=== PATIENT | female | born 1950 | race Caucasian/White ===

== ENCOUNTER → 2023-09-23 07:35 | Outpatient (REF) | payer OTHER, SELFPAY | LOC: RAD 07:35 | PROVIDERS: ATTENDING PHYSICIAN Orthopaedic Surgery; FAMILY PHYSICIAN Internal Medicine | DX: M25.511 Pain in right shoulder (principal) | CPT/HCPCS: 76882 ==

== ENCOUNTER 2023-10-08 05:47 | Day surgery (SDC) | payer OTHER, SELFPAY ==
[2023-10-02 13:11] VITALS: BMI 26.9
[2023-10-02 13:50] LABS: % Basophils 0.7 % (0-2); % Eosinophils 1.3 % (0-6); % Immature Granulocytes 0.3 % (0-0.5); % Lymphocytes 42.3 % (20.5-51.1); % Monocytes 6.8 % (1.7-9.3); % Neutrophils 48.6 % (42.2-75.2); Absolute Basophils 0.1 10^3/uL (0-0.2); Absolute Eosinophils 0.1 10^3/uL (0-0.7); Absolute Lymphocytes 3.2 10^3/uL (1.2-3.4); Absolute Monocytes 0.5 10^3/uL (0.1-0.6); Absolute Neutrophils 3.7 10^3/uL (1.4-6.5); Hematocrit 41.3 % (37.0-47.0); Hemoglobin 13.8 g/dL (12.0-16.0); Mean Corp Hgb Conc. 33.4 g/dL (33.0-37.0); Mean Corpuscular Hgb 31.2 pg (27.0-31.0); Mean Corpuscular Volume 93.4 fL (81.0-99.0); Mean Platelet Volume 9.6 fL (7.4-10.4); Nucleated Red Blood Cells % 0 %; Platelet Count 308 10^3/uL (130-400); Red Blood Cell Count 4.42 10^6/uL (4.20-5.40); Red Cell Dist. Width 12.7 % (11.5-14.5); White Blood Cell Count 7.6 10^3/uL (4.8-10.8)
[2023-10-02 14:03] LABS: Blood Urea Nitrogen 16 mg/dl (7-17); Calcium 9.6 mg/dl (8.4-10.2); Carbon Dioxide 28 mmol/L (22-30); Chloride 103 mmol/L (98-107); Estimated Creatinine Clearance 58 ml/min; Glucose 101 mg/dl (70-99); Potassium 4.8 mmol/L (3.5-5.1); Sodium 135 mmol/L (135-145); eGFR > 60.00
[2023-10-08] VITALS (10 sets, daily range): BP systolic 122–148; BP diastolic 60–102; BMI 26.9
[2023-10-08] MEDS: NORMOSOL-R 1000 IV (06:27)
[2023-10-08] MEDS: MOBIC 15 MG PO (06:27)
[2023-10-08] MEDS: TYLENOL 1000 MG PO (06:27)
== END 2023-10-08 10:34 | disposition home or self-care (01) ==
LOC: SDS 05:47
PROVIDERS: ATTENDING PHYSICIAN Orthopaedic Surgery; FAMILY PHYSICIAN Internal Medicine; OTHER PHYSICIAN Internal Medicine Cardiovascular Disease
DX: S46.211A Strain of muscle, fascia and tendon of other parts of biceps, right arm, initial encounter (principal); M75.41 Impingement syndrome of right shoulder; W19.XXXA Unspecified fall, initial encounter
CPT/HCPCS: 29827; 29819; 29823; 36415; 80048; 85025; 93005; C1713

== ENCOUNTER 2023-10-13 00:05 | Emergency (ER) | payer OTHER, SELFPAY ==
[2023-10-13 00:10] VITALS: BP 116/72
--- NOTE | 2023-10-13 01:28 | ED.GENMED ---
History of Present Illness
<BLANCHE Montero - Last Filed: 10/13/23 01:44>
General
Chief Complaint: Bowel Problem
Source: patient
Exam Limitations: none
Time Seen by Provider: 10/13/23 01:12
Nursing documentation reviewed up to this point in time: agreed with
Travel History
Have you had any contact with someone who has COVID-19?: No
Do you have any symptoms of coronavirus? Fever > 100 degrees, chills, cough, shortness of breath, sore throat, loss of taste or smell, muscle aches, or headache?: No
History of Present Illness
History of Present Illness:
patient is a 73 y/o female presenting due to lack of bowel movement in 5 days. patient had a rotator cuff surgery on . Patient admits to small bowel movement stating that was the size of a quarter. Patient admits to associated lower
abdominal pain that is constant but will get severe in waves. Patient admits the pain has gotten worse today. Patient admits that she has been nausea with dry heaving since 7pm today with no episodes of vomiting. Patient denies D/V, fever, chills,
CP, SOB, .patient has been taking stool softener and Dulcolax at home for many days with no success. patient has been eating regularly with last meal this morning.
Past History
<BLANCHE Montero - Last Filed: 10/13/23 01:44>
Past History
ED Past Medical History: Cancer, Other (pacemaker) and Other (lung ca)
ED Past Surgical History: Cardiac (pacemaker) and Other (Pneumonectomy)
Social History
Tobacco: Former smoker
Alcohol: None
Drug: None
Personal:
Living: with family
Employment: Other
Family History
Family History: Hypertension
Review of Systems
<BLANCHE Montero - Last Filed: 10/13/23 01:44>
Review of Systems
All Other Systems: Not applicable
Constitutional: Reports no symptoms
EENT: Reports no symptoms
Respiratory: Reports no symptoms
Cardiac: Reports no symptoms
ABD/GI: Reports abdominal pain, nausea and constipated
: Reports no symptoms
Musculoskeletal: Reports no symptoms
Skin: Reports no symptoms
Neurological: Reports no symptoms
Endocrine: Reports no symptoms
Hematologic/Lymphatic: Reports no symptoms
Psychiatric: Reports no symptoms
Phy Exam
<BLANCHE Montero - Last Filed: 10/13/23 01:44>
General Physical Exam
General Presentation: well appearing and no apparent distress
General Skin: warm and dry
General Habitus: normal
General Mental: alert
General Hydration: appears well hydrated
ENT Exam
ENT Exam: EOMI, pharynx normal, neck supple and normocephalic
Eye Exam
Eye Exam: PERRL, cornea clear and conjunctiva normal
Cardiovascular Exam
Cardiovascular Exam: regular rate/rhythm, no edema, no murmur and normal peripheral pulses
Pulmonary Exam
Pulmonary Exam: lungs clear, no respiratory distress, no rales, no crackles, no rhonchi, no stridor, no wheezing and no cough
Gastrointestinal Exam
Gastrointestinal Exam: soft and abnormal bowel sounds (no bowel sounds)
Palpation: generalized: Mild tenderness
Auscultation of Abdomen: absent
Rectal Exam: no stool
Neurological Exam
Neurological Exam: alert, oriented x3, no motor deficits and speech normal
Musculoskeletal Exam
Musculoskeletal Exam: full ROM and no edema
Skin Exam
Skin Exam: normal color, warm/dry, no rash and no petechia
Psychiatric Exam
Psychiatric Exam: normal mood/affect
Course
<BLANCHE Montero - Last Filed: 10/13/23 01:44>
Orders/Labs/Results
Orders:
Orders
10/13/23 01:43
Enema- Treatment ONCE
Type: Milk of Molasses
Obstruct Series W/PA Chest [CR Obstruct Series W/pa Chest] Urgent
Comment:
Reason For Exam: lower abd pain, constipated
10/13/23 02:30
CT Abd/pelvis W Iv Cont Urgent
Comment:
Reason For Exam: general abd pain
Complete Blood Count/With Diff Urgent
Comprehensive Metabolic Panel Urgent
10/13/23 02:58
Lactulose [Duphalac/Chronulac] 20 grams PO ONCE ONE
Vital Signs
Initial and Last Documented VS:
Initial Vital Signs
Temp Pulse Resp BP Pulse Ox
97.8 F 88 24 116/72 96
10/13/23 00:10 10/13/23 00:10 10/13/23 00:10 10/13/23 00:10 10/13/23 00:10
Last Documented Vital Signs
Temp Pulse Resp BP Pulse Ox
97.8 F 88 24 116/72 96
10/13/23 00:10 10/13/23 00:10 10/13/23 00:10 10/13/23 00:10 10/13/23 00:10
<Danilo Lares, DO - Last Filed: 10/13/23 03:02>
Orders/Labs/Results
Orders:
Orders
10/13/23 01:43
Enema- Treatment ONCE
Type: Milk of Molasses
Obstruct Series W/PA Chest [CR Obstruct Series W/pa Chest] Urgent
Comment:
Reason For Exam: lower abd pain, constipated
10/13/23 02:30
CT Abd/pelvis W Iv Cont Urgent
Comment:
Reason For Exam: general abd pain
Complete Blood Count/With Diff Urgent
Comprehensive Metabolic Panel Urgent
10/13/23 02:58
Lactulose [Duphalac/Chronulac] 20 grams PO ONCE ONE
Vital Signs
Initial and Last Documented VS:
Initial Vital Signs
Temp Pulse Resp BP Pulse Ox
97.8 F 88 24 116/72 96
10/13/23 00:10 10/13/23 00:10 10/13/23 00:10 10/13/23 00:10 10/13/23 00:10
Last Documented Vital Signs
Temp Pulse Resp BP Pulse Ox
97.8 F 88 24 116/72 96
10/13/23 00:10 10/13/23 00:10 10/13/23 00:10 10/13/23 00:10 10/13/23 00:10
<BLANCHE Montero - Last Filed: 10/13/23 01:44>
MDM/Problems Addressed
Differential Diagnosis Includes:
ileus
SOB
constipation
MDM/Problems Addressed:
abdominal pain
<BLANCHE Montero - Last Filed: 10/13/23 01:44>
*Critical Care Note
Total Time (30-74mins, 75-104mins- exclusive of procedures): Not Applicable
<Danilo Lares, DO - Last Filed: 10/13/23 03:02>
Update Note
Update Note:
Obstruction study does show air-fluid levels. Will obtain CT to rule out obstruction
I reevaluated the patient after the enema. Patient states she had a significant bowel movement and stating she is feeling much better. I discussed my concern for the x-ray we discussed getting the CT scan. Patient acknowledges my concern but
states she feels comfortable going home. She is questioning whether or not there is something stronger than magnesium citrate. Will give dose of lactulose. Patient understands the risks of going home and states she will come back if things get
worse
ED Attending Note
<BLANCHE Montero - Last Filed: 03/26/24 01:44>
-
Portions of this chart may have been created with voice recognition software.� Occasional wrong word or��sound alike� substitutions may have occurred due to the inherent limitations of voice recognition software.
<Danilo Lares, DO - Last Filed: 10/13/23 03:02>
ED Attending Note
Patient seen and examined by attending physician: Yes
I performed the substantive portion of visit, reviewed & personally made and approve the management plan that is documented in note by myself or KENJI.: Yes
ED Attending Note:
I have seen and evaluated the patient with a [id number] encounter. I have spoken to the advance practicer provider and involved in the medical history, the physical exam, medical decision making.
Evaluation and management service: agree unless noted differently below.
Results interpretation: agree unless noted differently below.
Focused HPI: 73-year-old female presenting with abdominal pain and constipation. She had recent right shoulder surgery and has been taking narcotics. Patient thought she was being proactive. She was taking stool softeners and Dulcolax while she
was taking the narcotics but she became constipated. She complains of dry heaving but denies vomiting
Physical exam: She appears comfortable. No significant abdominal tenderness noted. Rectal exam performed with director of marketing operations YOJANA Truong. No stool palpated in the rectal vault
Medical Decision Making: Given that no stool is palpated, will obtain obstruction series and enema and reassess
Discharge Plan
Departure
Patient Disposition: Home (Routine Discharge)
Date of Disposition: 10/13/23
Time of Disposition: 03:01
Patient with high blood pressure during this ER visit?: No
Discharge Problem:
Acute constipation
Instructions: Constipation, Adult (DC)
Prescriptions:
No Action
eszopiclone [Lunesta] 3 MG tablet
3 mg PO HS PRN (Reason: insomnia)
Patient Comments:
04/01/2022: last filled 09/30/21, 90 tabs for 90 days from [facility]#2236
albuterol sulfate 1 PUFF HFA aerosol inhaler
2 puff inhalation R Q6 PRN (Reason: sob/wheezing)
Patient Comments:
patient reports using this medication one year ago
carvedilol 6.25 mg Tablet
6.25 mg PO BID
valsartan 80 mg Tablet
80 mg PO HS
gabapentin 300 mg Capsule
300 mg PO BID PRN (Reason: pain)
budesonide-formoterol [Symbicort] 160-4.5 mcg/actuation Hfa Aerosol Inhaler
2 puff INHALATION R BID PRN (Reason: allergies)
docusate sodium [Stool Softener] 100 mg Capsule
100 mg PO HS
multivitamin Capsule
1 cap PO DAILY
Probiotic
220 mg PO DAILY
magnesium
72 mg PO DAILY
duloxetine 30 mg Capsule,Delayed Release(Dr/Ec)
30 mg PO HS
Referrals:
Sherrell Christie MD [Family Provider] -
Activity Restrictions/Additional Instructions:
Please return for any worsening symptoms.
You may return at any time if you have further concerns.
As we discussed, I cannot 100% rule out an obstruction in your intestines. I am glad you are feeling better but you must return if symptoms persist.
Please follow up with your doctor at the first available appointment, preferably this week.
Thank you for choosing [facility] [place].
Interventions
Interventions:
*Risk Screen - Suicide Last Done: 10/13/23 00:10
*General Assessment Last Done: 10/13/23 02:49
*Neglect/Abuse Screening Last Done: 10/13/23 00:10
ED- Fall Risk Assessment Last Done: 10/13/23 01:40
*ED COVID-19 Vaccine History Last Done: 10/13/23 02:49
SR-Duttru-Dfijpermai Assessment Last Done: 10/13/23 01:40
[2023-10-13] MEDS: DUPHALAC/CHRONULAC 20 GRAMS PO (03:14)
== END 2023-10-13 03:15 | disposition home or self-care (01) ==
LOC: EMR 00:05
PROVIDERS: EMERGENCY PHYSICIAN Student in an Organized Health Care Education/Training Program; FAMILY PHYSICIAN Internal Medicine
DX: K59.00 Constipation, unspecified (principal)
CPT/HCPCS: 99283; 74022

== ENCOUNTER 2023-11-17 08:56 | Outpatient (RCR) | payer OTHER, SELFPAY | END 2023-11-17 23:59 | disposition home or self-care (01) | LOC: RPT 08:56 | PROVIDERS: ATTENDING PHYSICIAN Orthopaedic Surgery; FAMILY PHYSICIAN Internal Medicine | DX: Z47.89 Encounter for other orthopedic aftercare (principal); Z98.890 Other specified postprocedural states; M25.511 Pain in right shoulder; Z73.6 Limitation of activities due to disability | CPT/HCPCS: 97010; 97110; 97140; 97161 ==

== ENCOUNTER 2023-12-17 06:28 | Outpatient (RCR) | payer OTHER, SELFPAY | END 2023-12-17 23:59 | disposition home or self-care (01) | LOC: RPT 06:28 | PROVIDERS: ATTENDING PHYSICIAN Orthopaedic Surgery; FAMILY PHYSICIAN Internal Medicine | DX: M25.511 Pain in right shoulder (principal); Z98.890 Other specified postprocedural states; Z73.6 Limitation of activities due to disability | CPT/HCPCS: 97010; 97110; 97112; 97140 ==

== ENCOUNTER 2024-01-15 13:58 | Outpatient (RCR) | payer OTHER, SELFPAY | END 2024-01-15 23:59 | disposition home or self-care (01) | LOC: RPT 13:58 | PROVIDERS: ATTENDING PHYSICIAN Orthopaedic Surgery; FAMILY PHYSICIAN Internal Medicine | DX: Z47.89 Encounter for other orthopedic aftercare (principal); Z73.6 Limitation of activities due to disability; M62.81 Muscle weakness (generalized); M25.511 Pain in right shoulder | CPT/HCPCS: 97010; 97110; 97112; 97140 ==

== ENCOUNTER 2024-02-16 11:57 | Outpatient (RCR) | payer OTHER, SELFPAY | END 2024-02-16 23:59 | disposition home or self-care (01) | LOC: RPT 11:57 | PROVIDERS: ATTENDING PHYSICIAN Orthopaedic Surgery; FAMILY PHYSICIAN Internal Medicine | DX: Z47.89 Encounter for other orthopedic aftercare (principal); Z73.6 Limitation of activities due to disability; M62.81 Muscle weakness (generalized); M25.511 Pain in right shoulder | CPT/HCPCS: 97010; 97110; 97112; 97140 ==

== ENCOUNTER 2024-02-18 10:57 | Outpatient (RCR) | payer OTHER, SELFPAY | END 2024-02-18 11:58 | disposition home or self-care (01) | LOC: RPT 10:57 | PROVIDERS: ATTENDING PHYSICIAN Orthopaedic Surgery; FAMILY PHYSICIAN Internal Medicine | DX: Z47.89 Encounter for other orthopedic aftercare (principal); Z73.6 Limitation of activities due to disability; M62.81 Muscle weakness (generalized); M25.511 Pain in right shoulder; Z98.890 Other specified postprocedural states | CPT/HCPCS: 97110; 97140 ==

== ENCOUNTER → 2024-04-06 10:28 | Outpatient (REF) | payer OTHER, SELFPAY | LOC: HWWDC 10:28 | PROVIDERS: ATTENDING PHYSICIAN Internal Medicine | DX: M81.0 Age-related osteoporosis without current pathological fracture (principal); Z12.31 Encounter for screening mammogram for malignant neoplasm of breast | CPT/HCPCS: 77063; 77067; 77080 ==

== ENCOUNTER 2024-05-24 15:49 | Emergency (ER) | payer OTHER, SELFPAY ==
[2024-05-24 15:55] VITALS: BP 158/92
[2024-05-24 16:11] LABS: Urine Albumin Negative (Neg - Trace); Urine Bilirubin Negative (Negative); Urine Character Clear (Clear); Urine Color Yellow; Urine Glucose Negative (Negative); Urine Ketone Negative (Negative); Urine Leukocyte Trace (Negative); Urine Nitrite Negative (Negative); Urine Occult Blood Negative (Negative); Urine Urobilinogen Negative (Neg - 1+)
[2024-05-24 16:14] LABS: % Basophils 0.6 % (0-2); % Eosinophils 1.2 % (0-6); % Immature Granulocytes 0.2 % (0-0.5); % Lymphocytes 40.7 % (20.5-51.1); % Monocytes 7.7 % (1.7-9.3); % Neutrophils 49.6 % (42.2-75.2); Absolute Basophils 0.1 10^3/uL (0-0.2); Absolute Eosinophils 0.1 10^3/uL (0-0.7); Absolute Lymphocytes 4.1 10^3/uL (1.2-3.4); Absolute Monocytes 0.8 10^3/uL (0.1-0.6); Hematocrit 40.3 % (37.0-47.0); Hemoglobin 13.8 g/dL (12.0-16.0); Mean Corp Hgb Conc. 34.2 g/dL (33.0-37.0); Mean Corpuscular Hgb 31.3 pg (27.0-31.0); Mean Corpuscular Volume 91.4 fL (81.0-99.0); Nucleated Red Blood Cells % 0 %; Platelet Count 323 10^3/uL (130-400); Red Blood Cell Count 4.41 10^6/uL (4.20-5.40); White Blood Cell Count 10.1 10^3/uL (4.8-10.8)
[2024-05-24 16:29] LABS: ALT (SGPT) 20 U/L (0-35); AST (SGOT) 27 U/L (14-36); Albumin 4.8 g/dl (3.5-5.0); Alkaline Phosphatase 64 U/L (38-126); Blood Urea Nitrogen 17 mg/dl (7-17); Calcium 10.2 mg/dl (8.4-10.2); Carbon Dioxide 27 mmol/L (22-30); Chloride 103 mmol/L (98-107); Glucose 107 mg/dl (70-99); Lipase 138 U/L (23-300); Potassium 4.7 mmol/L (3.5-5.1); Sodium 141 mmol/L (135-145); Total Bilirubin 0.3 mg/dl (0.2-1.3); Total Protein 7.5 g/dl (6.3-8.2); Urine Bacteria Few (Negative); Urine Mucus Few; Urine Red Blood Cell 0-2 /HPF (0-2); Urine White Cell 0-2 /HPF (0-5); eGFR > 60.00
[2024-05-24 18:16] VITALS: BP 160/83
--- NOTE | 2024-05-24 18:20 | ED.GENMED ---
History of Present Illness
General
Chief Complaint: Abdominal Pain
Source: patient
Time Seen by Provider: 05/24/24 18:09
History of Present Illness
History of Present Illness:
73yoF with a history of atrial fibrillation, hypertension, prior lung cancer in remission presenting for evaluation of abdominal pain. Symptoms initially began 2 days ago with diarrhea. She states she had 2-3 'blow outs.' She then started to
experience lower abdominal pain yesterday. Pain comes in waves and is severe at times. She reports feeling like she is being stabbed with a knife. She now feels constipated. It feels like she has to have a bowel movement but she is unable to. She
took a laxative without relief. She had nausea and dry heaving yesterday. She is not eating much due to her symptoms. She denies any fevers or dysuria. She was seen by her PCP earlier today who was reportedly concerned about a bowel obstruction.
Previous abdominal surgeries include an appendectomy, ovarian cystectomy, and D&Cx2.
Past History
Past History
ED Past Medical History: Cancer, Other (pacemaker) and Other (lung ca)
ED Past Surgical History: Cardiac (pacemaker) and Other (Pneumonectomy)
Social History
Tobacco: Former smoker
Alcohol: None
Drug: None
Personal:
Living: with family
Employment: Other
Family History
Family History: Hypertension
Phy Exam
General Physical Exam
General Presentation: well appearing and no apparent distress
General age: appears stated age
General Skin: warm and dry
General Habitus: normal
General Mental: alert
ENT Exam
ENT Exam: normocephalic
Pulmonary Exam
Pulmonary Exam: no respiratory distress
Gastrointestinal Exam
Gastrointestinal Exam: soft, non distended and tender (+Tenderness throughout lower abdomen. Abdomen soft, non-distended. No rebound or guarding. )
Neurological Exam
Neurological Exam: alert
Eric Coma Scale
Eye Opening: Spontaneous
Verbal Response: Oriented
Motor Response: Obeys Commands
GCS Total Score: 15
Skin Exam
Skin Exam: normal color and warm/dry
Psychiatric Exam
Psychiatric Exam: normal mood/affect
Course
Orders/Labs/Results
Orders:
Orders
05/24/24 16:02
Complete Blood Count/With Diff Urgent
Comprehensive Metabolic Panel Urgent
Lipase Urgent
Urinalysis Reflex To Culture Urgent
Date Specimen was Collected: 05/24/24
Time Specimen was Collected: 15:56
Urine Microscopic Reflex Cult Urgent
05/24/24 18:20
CT Abd/pel W Iv And Oral Contr Urgent
Comment:
Reason For Exam: Lower abd pain, constipation
Iohexol [Omnipaque] See Protocol PO NOW STA
05/24/24 20:46
Ondansetron Injectable [Zofran] 4 mg IV NOW STA
05/24/24 20:47
Ondansetron Injectable [Zofran] 4 mg .ROUTE .STK-MED ONE
05/24/24 21:24
Enema- Treatment ONCE
Type: Milk of Molasses
Sennosides [Senokot] 8.6 mg PO NOW STA
05/24/24 21:25
Lactulose [Duphalac/Chronulac] 20 grams PO ONCE ONE
Abnormal Lab Results
05/24/24
16:02
MCH 31.3 H pg
(27.0-31.0)
Absolute Lymphs (auto) 4.1 H 10^3/uL
(1.2-3.4)
Absolute Monos (auto) 0.8 H 10^3/uL
(0.1-0.6)
Glucose 107 H mg/dl
(70-99)
Leukocyte Esterase Rfl Trace A
(Negative)
Urine Bacteria (Reflex) Few A
(Negative)
05/24/24 16:02
05/24/24 16:02
Vital Signs
Initial and Last Documented VS:
Initial Vital Signs
Temp Pulse Resp Pulse Ox
98.2 F 104 18 99
05/24/24 15:53 05/24/24 15:53 05/24/24 15:53 05/24/24 15:53
Last Documented Vital Signs
Temp Pulse Resp BP Pulse Ox
98.2 F 89 18 134/89 97
05/24/24 15:53 05/24/24 22:30 05/24/24 15:53 05/24/24 22:30 05/24/24 22:30
MDM/Problems Addressed
Differential Diagnosis Includes:
73yoF here with lower abd pain x 1 day. Also c/o feeling constipated. Had diarrhea 2 days ago. Saw PCP today who was concerned about a bowel obstruction. VSS. She is well appearing in no distress. No signs of peritonitis on abdominal exam.
Differential diagnosis includes but is not limited to: constipation, SBO, diverticulitis, colitis, nonspecific abdominal pain
Initial ED plan: Abdominal labs and UA obtained in triage. Labs overall unremarkable including normal white count, renal function, LFTs. UA bland without signs of infection. Will check CT abdomen with IV/PO contrast. Patient declines analgesics.
*Critical Care Note
Total Time (30-74mins, 75-104mins- exclusive of procedures): Not Applicable
Update Note
Update Note:
CT abdomen is negative for acute findings other than constipation. She was given a milk of molasses enema and was able to have a large BM. Abdominal pain significantly improved after bowel movement. She is stable for discharge. She was also given a
dose of lactulose as she states this helped her the last time she was in the ED for constipation. Supportive care discussed. Advised f/u with PCP and GI. ED return precautions discussed. She was discharged in stable condition.
ED Attending Note
-
Portions of this chart may have been created with voice recognition software.� Occasional wrong word or��sound alike� substitutions may have occurred due to the inherent limitations of voice recognition software.
Discharge Plan
Departure
Patient Disposition: Home (Routine Discharge)
Date of Disposition: 05/24/24
Time of Disposition: 22:02
Patient with high blood pressure during this ER visit?: Yes
Discharge Problem:
Constipation
Instructions: Constipation, Adult (DC)
Prescriptions:
No Action
eszopiclone [Lunesta] 3 MG tablet
3 mg PO HS PRN (Reason: insomnia)
Patient Comments:
04/01/2022: last filled 09/30/21, 90 tabs for 90 days from [facility]#[id number]
albuterol sulfate 1 PUFF HFA aerosol inhaler
2 puff inhalation R Q6 PRN (Reason: sob/wheezing)
Patient Comments:
patient reports using this medication one year ago
carvedilol 6.25 mg Tablet
6.25 mg PO BID
valsartan 80 mg Tablet
80 mg PO HS
gabapentin 300 mg Capsule
300 mg PO BID PRN (Reason: pain)
budesonide-formoterol [Symbicort] 160-4.5 mcg/actuation Hfa Aerosol Inhaler
2 puff INHALATION R BID PRN (Reason: allergies)
docusate sodium [Stool Softener] 100 mg Capsule
100 mg PO HS
multivitamin Capsule
1 cap PO DAILY
Probiotic
220 mg PO DAILY
magnesium
72 mg PO DAILY
duloxetine 30 mg Capsule,Delayed Release(Dr/Ec)
30 mg PO HS
Referrals:
Sherrell Christie MD [Family Provider] -
Won Katz DO [Active] -
Activity Restrictions/Additional Instructions:
Take Miralax twice a day until bowel movements regulate. Increase your fluid and fiber intake.
Please follow-up with your family doctor and gastroenterology. Return to the ER with any new or worsening symptoms.
Interventions
Interventions:
*Risk Screen - Suicide Last Done: 05/24/24 15:54
*General Assessment Last Done: 05/24/24 15:54
*Neglect/Abuse Screening Last Done: 05/24/24 15:54
ED- Fall Risk Assessment Last Done: 05/24/24 22:42
*ED COVID-19 Vaccine History Last Done: 05/24/24 15:54
*Nursing Disposition Last Done: 05/24/24 22:42
YN-Jjutwx-Cvuinyetwj Assessment Last Done: 05/24/24 15:55
Discharge Date and Time
Discharge Date/Time: 05/24/24 22:43
Print Language: VINCENTIAN
[2024-05-24] MEDS: OMNIPAQUE 50 ML PO (18:24)
[2024-05-24] MEDS: ZOFRAN 4 MG IV (21:07)
[2024-05-24] MEDS: DUPHALAC/CHRONULAC 20 GRAMS PO (22:27)
[2024-05-24] MEDS: SENOKOT 8.6 MG PO (22:27)
[2024-05-24 22:30] VITALS: BP 134/89
== END 2024-05-24 22:43 | disposition home or self-care (01) ==
LOC: EMR 15:49
PROVIDERS: Student in an Organized Health Care Education/Training Program; EMERGENCY PHYSICIAN Emergency Medicine; FAMILY PHYSICIAN Internal Medicine
DX: K59.00 Constipation, unspecified (principal); I10 Essential (primary) hypertension; I48.91 Unspecified atrial fibrillation; Z87.891 Personal history of nicotine dependence
CPT/HCPCS: 99285; 96374; 74177; 80053; 81003; 81015; 83690; 85025; Q9967

== ENCOUNTER → 2024-08-09 10:34 | Outpatient (REF) | payer OTHER, SELFPAY ==
[2024-08-09 11:37] LABS: Total Cholesterol 247 mg/dl (50-199); Triglyceride 128 mg/dl (10-149); Very Low Density Lipoprotein 25 mg/dl (0-30)
[2024-08-09 11:48] LABS: HDL Cholesterol 117 mg/dl; LDL Cholesterol, Calculated 105 mg/dl
== END ==
LOC: REG 10:34
PROVIDERS: ATTENDING PHYSICIAN Internal Medicine Cardiovascular Disease; FAMILY PHYSICIAN Internal Medicine
DX: E78.89 Other lipoprotein metabolism disorders (principal)
CPT/HCPCS: 36415; 80061

== ENCOUNTER → 2024-08-18 07:50 | Outpatient (REF) | payer OTHER, SELFPAY | LOC: HWRCS 07:50 | PROVIDERS: ATTENDING PHYSICIAN Internal Medicine Cardiovascular Disease; FAMILY PHYSICIAN Internal Medicine | DX: I42.8 Other cardiomyopathies (principal) | CPT/HCPCS: 93306 ==

== ENCOUNTER → 2024-08-23 13:39 | Outpatient (REF) | payer OTHER, SELFPAY | LOC: MRI 13:39 | PROVIDERS: ATTENDING PHYSICIAN Psychiatry & Neurology Neurology; FAMILY PHYSICIAN Internal Medicine | DX: R27.0 Ataxia, unspecified (principal); R29.2 Abnormal reflex | CPT/HCPCS: 70553; 72156; A9575 ==

== ENCOUNTER → 2024-08-31 08:37 | Outpatient (REF) | payer OTHER, SELFPAY ==
[2024-08-31 09:32] LABS: % Basophils 0.8 % (0-2); % Eosinophils 2.5 % (0-6); % Immature Granulocytes 0.2 % (0-0.5); % Lymphocytes 38.4 % (20.5-51.1); % Monocytes 6.8 % (1.7-9.3); % Neutrophils 51.3 % (42.2-75.2); Absolute Basophils 0.1 10^3/uL (0-0.2); Absolute Eosinophils 0.2 10^3/uL (0-0.7); Absolute Lymphocytes 2.5 10^3/uL (1.2-3.4); Absolute Monocytes 0.4 10^3/uL (0.1-0.6); Absolute Neutrophils 3.3 10^3/uL (1.4-6.5); Hematocrit 43.1 % (37.0-47.0); Hemoglobin 14.5 g/dL (12.0-16.0); Mean Corp Hgb Conc. 33.6 g/dL (33.0-37.0); Mean Corpuscular Hgb 31.5 pg (27.0-31.0); Mean Corpuscular Volume 93.7 fL (81.0-99.0); Nucleated Red Blood Cells % 0 %; Red Cell Dist. Width 12.4 % (11.5-14.5); White Blood Cell Count 6.5 10^3/uL (4.8-10.8)
[2024-08-31 10:07] LABS: ALT (SGPT) 23 U/L (0-35); AST (SGOT) 26 U/L (14-36); Alkaline Phosphatase 73 U/L (38-126); Blood Urea Nitrogen 17 mg/dl (7-17); Calcium 10.2 mg/dl (8.4-10.2); Carbon Dioxide 28 mmol/L (22-30); Chloride 99 mmol/L (98-107); Glucose 116 mg/dl (70-99); Potassium 4.6 mmol/L (3.5-5.1); Sodium 137 mmol/L (135-145); Total Bilirubin 0.6 mg/dl (0.2-1.3); Total Cholesterol 299 mg/dl (50-199); Total Protein 7.8 g/dl (6.3-8.2); Triglyceride 103 mg/dl (10-149); Very Low Density Lipoprotein 20 mg/dl (0-30); eGFR > 60.00
[2024-08-31 10:17] LABS: HDL Cholesterol 133 mg/dl; LDL Cholesterol, Calculated 146 mg/dl
[2024-08-31 10:36] LABS: TSH 2.44 uIU/ml (0.47-4.68)
[2024-08-31 10:57] LABS: Glycohemoglobin (HgbA1c) 5.9 % (4.0-5.6)
[2024-08-31 11:11] LABS: Folate 10.7 ng/ml (2.76-20); Vitamin B12 623 pg/ml (239-931)
== END ==
LOC: REG 08:37
PROVIDERS: ATTENDING PHYSICIAN Psychiatry & Neurology Neurology; FAMILY PHYSICIAN Internal Medicine
DX: R73.01 Impaired fasting glucose (principal); M79.2 Neuralgia and neuritis, unspecified; D53.1 Other megaloblastic anemias, not elsewhere classified; D89.2 Hypergammaglobulinemia, unspecified
CPT/HCPCS: 36415; 80053; 80061; 82607; 82746; 82784; 83036; 83521; 84155; 84165; 84443; 85025; 86334

== ENCOUNTER 2024-12-25 15:51 | Emergency (ER) | payer OTHER, SELFPAY ==
[2024-12-25 15:54] VITALS: BP 142/72
--- NOTE | 2024-12-25 17:51 | ED.GENMED ---
History of Present Illness
General
Chief Complaint: Head Injury
Source: patient
Time Seen by Provider: 12/25/24 17:04
History of Present Illness
History of Present Illness:
Note:
CHIEF COMPLAINT(S)
Fall with head injury and headache.
HISTORY OF PRESENT ILLNESS
The patient is a 74-year-old female who experienced a fall while trying to enter her house, reportedly tripping on a flip-flop and crashing headfirst through a screen door. She fell forward and is uncertain if she lost consciousness. A witness, the
patient�s family member, confirmed that no immediate loss of consciousness was observed. The patient has complained of a persistent headache since the fall, describing the pain as originating from the top of her head and extending downwards. She has
a history of atrial fibrillation ablation, noting previous issues with balance and frequent falls. The patient also reports dizziness, particularly when standing, but is not experiencing neck pain, weakness, or tingling. Her dizziness was noted upon
initial assessment, but she was stable when lying down. The patient had a CT scan of her head which was pending review by the radiologist at the time of the conversation.
ADDITIONAL HISTORY OBTAINED FROM SOURCES OTHER THAN THE PATIENT
According to the patients family member, the patient was seen tripping and falling forward through a screen door. The family member did not observe a loss of consciousness during the incident.
CHRONIC MEDICAL CONDITIONS SIGNIFICANTLY AFFECTING CARE
The patient has a history of atrial fibrillation, for which she underwent an ablation procedure. She also has chronic issues with balance and falls.
MEDICATIONS
The patient is currently taking medications including blood pressure and cholesterol medications but does not specify the names in full. She mentioned taking Duloxetine.
REVIEW OF SYSTEMS
- Neurological: Headache, dizziness.
- Musculoskeletal: Pain in the head.
PHYSICAL EXAM
- Head: Tenderness to the R forehead with minor swelling at hairline. no open wounds.
- Neck: No tenderness reported. no midline TTP
- Neurological: No pronator drift. No focal motor deficits. Cranial nerves are intact. Pupils are equal, round, and reactive to light. Finger to nose test and other basic coordination tests are normal.
-no respiratory distress
- Nursing notes reviewed and vital signs reviewed.
PLAN
Plan includes reviewing the results of the CT scan of the head to rule out skull fracture or intracranial bleeding. The possibility of a concussion is considered, and the patient took a single dose of analgesic medication consisting of a combination
of Acetaminophen and Ibuprofen (dual-action), despite her cardiovascular health considerations.
DIFFERENTIAL DIAGNOSIS
The Differential Diagnosis includes, in no particular order and is not limited to:
1. Concussion
2. Subdural hematoma
3. Epidural hematoma
4. Skull fracture
5. Intracerebral hemorrhage
6. Acute vertigo
7. Vestibular neuronitis
8. Atrial fibrillation complications
9. Cardiovascular event
10. Medication side-effects
CARE-UPDATE
12/25/24 - 17:[address] scan results are normal, with no evidence of intracranial bleeding or skull fracture; however, a mild concussion is likely. The patient should apply ice to reduce swelling in the subcutaneous tissue. Treatment recommendations include plenty
of fluids and regular Tylenol while avoiding Advil due to current medications. The patient should take it easy for a couple of days and can resume activities like driving if symptoms such as dizziness, lightheadedness, or impaired vision are absent.
Disposition:
DIAGNOSIS
- Concussion (S06.0X0A)
SUMMARY OF ENCOUNTER
The patient, a 74-year-old female, was seen after a fall in which she tripped on her flip-flop and fell forward into her house. She did not lose consciousness. The examination showed a non-focal neurological assessment, with slight swelling noted on
the scalp. The initial CT scan was negative. The patient has a known history of balance issues and episodes of frequent falls. It was determined that she likely sustained a mild concussion as a result of the fall.
DISPOSITION
The patient is to be discharged with advice.
ASSESSMENT
The patient likely sustained a mild concussion following a fall without loss of consciousness.
PLAN
The patient is advised to manage the symptoms with Tylenol for the headaches, stay hydrated, and get adequate rest. She should avoid straining activities and seek further medical attention if symptoms persist or worsen. Family members present are
advised to monitor her closely.
INDEPENDENT INTERPRETATION OF TESTS
My independent interpretation of the CT scan ruled out any intracranial bleeding or skull fractures
PATIENT EDUCATION AND COUNSELING
The patient was advised on managing a concussion, including recommendations for medication, hydration, and rest. Family members were involved and informed about possible symptoms to monitor and when to seek additional care.
FOLLOW-UP INSTRUCTIONS
The patient should follow up with her primary care physician if symptoms persist or worsen.
MEDICATION RECONCILIATION
The patient was advised to take Tylenol for headache management and to avoid other medications such as Advil, considering her current medication regimen.
MEDICAL DECISION MAKING
The patient presented with a minor head injury and possible concussion symptoms following the fall. After conducting a thorough physical examination and reviewing a CT scan, it was concluded she sustained a mild concussion. This decision was
influenced by her medical history, including chronic balance issues and atrial fibrillation, besides ensuring her cardiovascular medications do not interact adversely with the recommended treatment regimen for her concussion.
Past History
Past History
ED Past Medical History: Cancer, Other (pacemaker) and Other (lung ca)
ED Past Surgical History: Cardiac (pacemaker) and Other (Pneumonectomy)
Social History
Tobacco: Former smoker
Alcohol: None
Drug: None
Personal:
Living: with family
Employment: Other
Family History
Family History: Hypertension
Phy Exam
Physical Exam
Physical Exam:
.
Course
Orders/Labs/Results
Orders:
Orders
12/25/24 16:00
CT Head W/o Iv Contrast Urgent
Comment:
Reason For Exam: injury, loc
Vital Signs
Initial and Last Documented VS:
Initial Vital Signs
Temp Pulse Resp BP Pulse Ox
98.3 F 70 16 142/72 99
12/25/24 15:54 12/25/24 15:54 12/25/24 15:54 12/25/24 15:54 12/25/24 15:54
Last Documented Vital Signs
Temp Pulse Resp BP Pulse Ox
98.3 F 70 18 142/72 99
12/25/24 15:54 12/25/24 15:54 12/25/24 16:42 12/25/24 15:54 12/25/24 15:54
*Pulse Oximetry
Patient hypoxic: no
Comment: POx 99%
*Critical Care Note
Total Time (30-74mins, 75-104mins- exclusive of procedures): Not Applicable
ED Attending Note
-
Portions of this chart may have been created with voice recognition software.� Occasional wrong word or��sound alike� substitutions may have occurred due to the inherent limitations of voice recognition software.
Discharge Plan
Departure
Patient Disposition: Home (Routine Discharge)
Date of Disposition: 12/25/24
Time of Disposition: 17:53
Patient with high blood pressure during this ER visit?: Yes
Discharge Problem:
Head injury
Instructions: Concussion, Adult (DC), Head Injury in Adults (DC), Contusion (DC), BLOOD PRESSURE
Prescriptions:
No Action
eszopiclone [Lunesta] 3 MG tablet
3 mg PO HS PRN (Reason: insomnia)
Patient Comments:
04/01/2022: last filled 09/30/21, 90 tabs for 90 days from [facility]#[id number]
albuterol sulfate 1 PUFF HFA aerosol inhaler
2 puff inhalation R Q6 PRN (Reason: sob/wheezing)
Patient Comments:
patient reports using this medication one year ago
carvedilol 6.25 mg Tablet
6.25 mg PO BID
valsartan 80 mg Tablet
80 mg PO HS
gabapentin 300 mg Capsule
300 mg PO BID PRN (Reason: pain)
budesonide-formoterol [Symbicort] 160-4.5 mcg/actuation Hfa Aerosol Inhaler
2 puff INHALATION R BID PRN (Reason: allergies)
docusate sodium [Stool Softener] 100 mg Capsule
100 mg PO HS
multivitamin Capsule
1 cap PO DAILY
Probiotic
220 mg PO DAILY
magnesium
72 mg PO DAILY
duloxetine 30 mg Capsule,Delayed Release(Dr/Ec)
30 mg PO HS
Referrals:
Sherrell Christie MD [Family Provider, Internal Medicine]
Activity Restrictions/Additional Instructions:
Return immediately for changes in mentation, intractable vomiting, worsening headache, weakness of any kind or any other concerns. If symptoms persist, please see your doctor in the next 1 week for follow-up and reevaluation
Interventions
Interventions:
*Risk Screen - Suicide Last Done: 12/25/24 15:54
*General Assessment Last Done: 12/25/24 17:48
*Neglect/Abuse Screening Last Done: 12/25/24 15:54
*ED- Fall Risk Assessment Last Done: 12/25/24 17:48
*ED COVID-19 Vaccine History Last Done: 12/25/24 17:48
*Nursing Disposition Last Done: 12/25/24 18:03
ED- Neurological Assessment Last Done: 12/25/24 17:34
ED-Skin Assessment Last Done: 12/25/24 17:34
Discharge Date and Time
Discharge Date/Time: 12/25/24 18:04
Print Language: [email or web address]
== END 2024-12-25 18:04 | disposition home or self-care (01) ==
LOC: EMR 15:51
PROVIDERS: EMERGENCY PHYSICIAN Emergency Medicine; FAMILY PHYSICIAN Internal Medicine
DX: S09.90XA Unspecified injury of head, initial encounter (principal); W01.198A Fall on same level from slipping, tripping and stumbling with subsequent striking against other object, initial encounter; Z87.891 Personal history of nicotine dependence; Z95.0 Presence of cardiac pacemaker
CPT/HCPCS: 99284; 70450